=== PATIENT | male | born 1930 | race Caucasian/White ===

== ENCOUNTER 2017-11-15 10:49 | Inpatient (IN) | payer MEDICARE ==
--- NOTE | 2017-11-15 12:24 | XRAY Report ---
EXAM: CHEST RADIOGRAPHY EXAM DATE: 11/15/2017 12:08 PM. CLINICAL HISTORY: Fever. COMPARISON: Chest x-ray 05/01/2007. TECHNIQUE: 1 view. FINDINGS: Lungs/Pleura: Left basilar opacity. Left hemidiaphragm is partially obscured. No pneumothorax. Mediastinum: Tortuous thoracic aorta. Other: Left glenohumeral joint degenerative changes with inferior marginal osteophytes. Left shoulder calcific tendinosis. IMPRESSION: 1. Left basilar atelectasis and airspace disease worrisome for pneumonia. [facility] Referring Provider Line: [phone] SITE ID: [id number]
[2017-11-15 12:25] LABS: BILIRUBIN,URINE NEGATIVE (NEGATIVE); GLUCOSE, URINE (UA) NEGATIVE (NEGATIVE); KETONES,URINE (UA) NEGATIVE (NEGATIVE); LEUKOCYTE ESTERASE, URINE NEGATIVE (NEGATIVE); NITRITE,URINE NEGATIVE (NEGATIVE); OCCULT BLOOD,URINE TRACE-LYSE (NEGATIVE); PROTEIN,URINE NEGATIVE (NEGATIVE); UROBILINOGEN,URINE 0.2 (NORMAL) E.U./dL (NORMAL)
[2017-11-15 12:26] LABS: BASOPHILS % (AUTO) 0.8 %; EOSINOPHILS # (AUTO) 0.1 10^3/uL (0.0-0.7); HGB - HEMOGLOBIN 14.6 g/dL (14.0-18.0); LYMPHOCYTES # (AUTO) 1.3 10^3/uL (1.5-3.5); LYMPHOCYTES % (AUTO) 39.1 %; MEAN CORPUSCULAR HEMOGLOBIN 34.8 pg (27.0-31.0); MEAN CORPUSCULAR HGB CONC 34.8 g/dL (32.0-36.0); MEAN CORPUSCULAR VOLUME 100.1 fL (80.0-94.0); MEAN PLATELET VOLUME 10.3 fL (7.4-11.4); MONOCYTES # (AUTO) 0.3 10^3/uL (0.0-1.0); MONOCYTES % (AUTO) 9.1 %; NEUTROPHILS # (AUTO) 1.6 10^3/uL (1.5-6.6); PLT - PLATELET COUNT 100 10^3/uL (130-450); RED BLOOD COUNT 4.18 10^6/uL (4.70-6.10); RED CELL DISTRIBUTION WIDTH 13.8 % (12.0-15.0); WHITE BLOOD COUNT 3.2 x10^3/uL (4.8-10.8)
[2017-11-15] MEDS ORDERED: SODIUM CHLORIDE 0.9% 1,000 ML IV ONE (12:26)
[2017-11-15] MEDS ORDERED: ERTAPENEM 1 GM in SODIUM CHLORIDE 0.9% MINIBAG 100 ML IV STA (12:27)
[2017-11-15 12:32] LABS: CLARITY,URINE CLEAR (CLEAR)
[2017-11-15 12:32] LABS: CALCIUM 8.6 mg/dL (8.5-10.3); CREATININE 1.2 mg/dL (0.6-1.2)
[2017-11-15 12:45] LABS: PLATELET ESTIMATE, MANUAL DECREASED (<130,000) (NORMAL); PLATELET MORPHOLOGY 1+ LARGE PLATELETS (NORMAL); RBC MORPHOLOGY (MULTIPLE) NORMAL APPEARANCE (NORMAL)
--- NOTE | 2017-11-15 12:58 | ED Physician Documentation ---
History of Present Illness - Stated complaint Stated Complaint: FEVER/HEADACHE/D - Chief complaint Chief Complaint: General - Additonal information Additional information: hx from pt and very nice generally healthy 87 male only pmhx is HTN he had URI sx early Oct but got better went to a [employer] [place] and shortly after became ill again with fever myalgias fatigue sneezing coughing nausea and some non bloody diarrhea arrives hypotensive Review of Systems Constitutional: reports: Fever, Chills, Myalgias, Fatigue Nose: reports: Congestion, Other (sneezing) Respiratory: reports: Dyspnea, Cough GI: reports: Nausea, Diarrhea Neurologic: reports: Generalized weakness Endocrine: denies: Easy bruising / bleeding Immunocompromised: denies: Immunocompromised PD PAST MEDICAL HISTORY - Past Medical History Past Medical History: Yes Cardiovascular: Hypertension Respiratory: None Endocrine/Autoimmune: None HEENT: None Psych: None Musculoskeletal: None Derm: None - Past Surgical History Past Surgical History: Yes - Present Medications Home Medications: Ambulatory Orders Medication Instructions Recorded Confirmed Aspirin [Aspirin EC] 325 mg PO DAILY 11/15/17 11/15/17 Ezetimibe [Zetia] 10 mg PO DAILY 11/15/17 11/15/17 Losartan Potassium 50 mg PO DAILY 11/15/17 11/15/17 Multivitamin [Multiple Vitamins] 1 each PO DAILY 11/15/17 11/15/17 - Allergies Allergies/Adverse Reactions: Allergies Allergy/AdvReac Type Severity Reaction Status Date / Time No Known Drug Allergies Allergy Verified 11/15/17 10:56 - Social History Does the pt smoke?: No Smoking Status: Never smoker Does the pt drink ETOH?: Yes Does the pt have substance abuse?: No - Immunizations Immunizations are current?: Yes PD ED PE NORMAL - Vitals Vital signs reviewed: Yes - General General: Alert and oriented X 3 - HEENT HEENT: PERRL, Moist mucous membranes - Neck Neck: Supple, no meningeal sign - Cardiac Cardiac: RRR - Respiratory Respiratory: Other (coarse govind non focal) - Abdomen Abdomen: Soft, Non tender - Derm Derm: Normal color - Extremities Extremities: Normal ROM s pain - Neuro Neuro: Alert and oriented X 3 Results - Vitals Vitals: Vital Signs - 24 hr 11/15/17 11/15/17 10:52 12:26 Temperature 36.6 C 36.7 C Heart Rate 71 79 Respiratory 18 18 Rate Blood Pressure 96/70 105/76 O2 Saturation 97 97 Oxygen O2 Source Room air - Labs Labs: Laboratory Tests 11/15/17 11/15/17 11/15/17 11:30 11:30 11:30 WBC 3.2 L RBC 4.18 L Hgb 14.6 Hct 41.9 L MCV 100.1 H MCH 34.8 H MCHC 34.8 RDW 13.8 Plt Count 100 L MPV 10.3 Neut # 1.6 Lymph # 1.3 L [place] # 0.3 Eos # 0.1 Baso # 0.0 Absolute Nucleated RBC 0.00 Nucleated RBC % 0.0 Manual Slide Review Indicated Platelet Estimate DECREASED (<130,000) Platelet Morphology 1+ LARGE PLATELETS RBC Morph Micro Appear NORMAL APPEARANCE Sodium 134 L Potassium 4.2 Chloride 98 L Carbon Dioxide 26 Anion Gap 10.0 BUN 21 H Creatinine 1.2 Estimated GFR (MDRD) 58 L Glucose 79 Lactic Acid 1.6 Calcium 8.6 Urine Color Urine Clarity Urine pH Ur Specific [place] Urine Protein Urine Glucose (UA) Urine Ketones Urine Occult Blood Urine Nitrite Urine Bilirubin Urine Urobilinogen Ur Leukocyte Esterase Ur Microscopic Review Urine Culture Comments Influenza A (Rapid) Influenza B (Rapid) Influenza Types A,B Ag 11/15/17 11/15/17 12:00 12:20 WBC RBC Hgb Hct MCV MCH MCHC RDW Plt Count MPV Neut # Lymph # [place] # Eos # Baso # Absolute Nucleated RBC Nucleated RBC % Manual Slide Review Platelet Estimate Platelet Morphology RBC Morph Micro Appear Sodium Potassium Chloride Carbon Dioxide Anion Gap BUN Creatinine Estimated GFR (MDRD) Glucose Lactic Acid Calcium Urine Color YELLOW Urine Clarity CLEAR Urine pH 6.0 Ur Specific [place] 1.015 Urine Protein NEGATIVE Urine Glucose (UA) NEGATIVE Urine Ketones NEGATIVE Urine Occult Blood TRACE-LYSE Urine Nitrite NEGATIVE Urine Bilirubin NEGATIVE Urine Urobilinogen 0.2 (NORMAL) Ur Leukocyte Esterase NEGATIVE Ur Microscopic Review NOT INDICATED Urine Culture Comments NOT INDICATED Influenza A (Rapid) POSITIVE H Influenza B (Rapid) Negative Influenza Types A,B Ag + H - Rads (name of study) CXR Radiology: See rad report (L basilar atelectasis and airpsace dz c/w pna) PD MEDICAL DECISION MAKING - ED course ED course: arrive hypotensive ordered labs vblood cx lactate and gave IVF and invanz broad spectrrum after labs drawn pending results lactate was neg CXR shows pna influenza + have tamiflu and will admit given that pt had SIRS criteria d/w hospitalist Dr Schmitz Departure - Departure Disposition: 66 [facility] DC/Xfer Clinical Impression: Influenza A, SIRS (systemic inflammatory response syndrome) Pneumonia Qualifiers: Pneumonia type: due to unspecified organism Laterality: left Lung location: lower lobe of lung Qualified Code(s): J18.1 - Lobar pneumonia, unspecified organism Condition: Fair Discharge Date/Time: 11/15/17 13:55
[2017-11-15] MEDS ORDERED: OSELTAMIVIR 75 MG CAPSULE PO STA (13:00)
[2017-11-15] MEDS ORDERED: MORPHINE 2 MG/ML SYRINGE IVP PRN (13:19)
[2017-11-15] MEDS ORDERED: PROCHLORPERAZINE 10 MG/2 ML VIAL IVP PRN (13:19)
[2017-11-15] MEDS ORDERED: ALBUTEROL NEB 2.5 MG/3 ML INH PRN (13:19)
[2017-11-15] MEDS ORDERED: PROMETHAZINE 25 MG/1 ML VIAL IM PRN (13:19)
[2017-11-15] MEDS ORDERED: TEMAZEPAM 15 MG CAPSULE PO PRN (13:19)
[2017-11-15] MEDS ORDERED: oxyCODONE 5 MG TABLET PO PRN ×2 (13:19)
[2017-11-15] MEDS ORDERED: ACETAMINOPHEN 325 MG TABLET PO PRN (13:19)
[2017-11-15] MEDS: SODIUM CHLORIDE 0.9% 1,000 ML IV SCH (14:56)
[2017-11-15] MEDS: SODIUM CHLORIDE FLUSH 0.9% 10 ML SYRINGE IVP SCH ×2 (14:59→21:38)
[2017-11-15] MEDS: levoFLOXacin 750 MG/150 ML 750 MG/150 ML BAG IV SCH (14:59)
[2017-11-15] MEDS ORDERED: LOPERAMIDE 2 MG CAPSULE PO PRN (15:36)
--- NOTE | 2017-11-15 15:38 | HISTORY & PHYSICAL EXAMINATION ---
Chief Complaint - Chief Complaint Chief Complaint: Shortness of breath History of Present Illness - Admitted From Admitted From:: Emergency department - History Obtained From Records Reviewed: Yes History obtained from: Patient Exam Limitations: None - History of Present Illness HPI Comment/Other: Patient is an 87-year-old gentleman with a past medical history significant for abdominal aortic aneurysm status post stent, hearing loss and hypertension who presented to the emergency department with a chief complaint of shortness of air. Patient states that he was in his normal state of health until the beginning of this month when he states that he felt as though he was getting a cold. The patient states that he took DayQuil and NyQuil for several days and felt like he got over it. He states that about a week and a half later he went to the theater with his in [place] and when they returned home he began feeling cold. He states that that night he had a fever and chills. He states that a day or 2 later he began having a cough and again tried to take NyQuil over the last 2 weeks however his symptoms did not improve. The patient states that he has had continued cough increasing generalized weakness and now has shortness of breath with exertion. The patient states that his fevers did stop but he has been having increasing fatigue and shortness of breath especially the last 2 days and his finally convinced him to come into the emergency department. The patient also states that he has had diarrhea for 2 days. He does admit to body aches but denies any fevers or chills the last several days. The patient denies being around any sick contacts. The patient denies any headaches, blurred vision, runny nose, sore throat, he does admit to nasal congestion but denies any neck pain or difficulty swallowing. Patient denies any chest pain, orthopnea, PND, increased lower extremity swelling, he denies any abdominal pain but does admit to having lots of gas. The patient denies any constipation, he denies any nausea or vomiting. The patient denies any urinary urgency, urinary frequency or dysuria. The patient denies any joint pains, joint swelling, back pain, neck stiffness, he also denies any focal neurologic deficits. The patient does admit to decreased appetite but denies any recent unintentional weight loss. On presentation to the emergency department the patient was afebrile and vital signs were within normal limits aside from blood pressure of 96/70. The patient 's lab work did show a slight hyponatremia of 134 and a leukopenia of 3.2 with lymphopenia. The patient also had some mild thrombocytopenia. Patient's urine was negative and his influenza A was positive. The patient underwent a chest x- ray in the emergency department which revealed left basilar atelectasis and airspace disease worrisome for pneumonia. The patient had significant rhonchi on examination also concerning for pneumonia. The patient was given a liter of IV fluid and IV antibiotics in the emergency department the patient's blood pressure only came up to 105/76 and he continued to appear to be quite weak and given his age it was felt that the patient would be best off getting admitted for pneumonia and influenza a. History - Past Medical History Cardiovascular: reports: Hypertension, Other (Abdominal aortic aneurysm Status post stent) Respiratory: reports: Asthma (Childhood) Neuro: reports: Other (Hearing loss) Endocrine/Autoimmune: reports: None GI: reports: None : reports: None HEENT: reports: None Psych: reports: None Musculoskeletal: reports: None Derm: reports: None MRSA Hx?: No - Past Surgical History Cardiovascular: reports: AAA - Family & Social History Family History: Mother: (Father lived to be 92 and was healthy), CVA/ TIA (Mom had stroke at 64), Father: Family History Comment/Other: Patient has no brothers or sisters Living arrangement: At home Living Situation: With spouse/s.o. Social History Notes: The patient lives in [place], [place] in a home with his . Him and his have been for 44 years. The patient is still completely independent and still drives. The patient does not require any assistance devices for ambulating. The patient has 2 biological children and 1 stepchild. 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 The patient drinks a cocktail or a glass of wine daily. He used to smoke 2 packs a day but quit 35 years ago. He denies any illicit drug use - POLST Patient has POLST: No POLST Status: Full Code Meds/Allgy - Home Medications Home Medications: Ambulatory Orders Medication Instructions Recorded Confirmed Aspirin [Aspirin EC] 325 mg PO DAILY 11/15/17 11/15/17 Ezetimibe [Zetia] 10 mg PO QD 11/15/17 11/15/17 Losartan Potassium 50 mg PO DAILY 11/15/17 11/15/17 Multivitamin [Multiple Vitamins] 1 each PO DAILY 11/15/17 11/15/17 - Allergies Allergies/Adverse Reactions: Allergies Allergy/AdvReac Type Severity Reaction Status Date / Time No Known Drug Allergies Allergy Verified 11/15/17 10:56 Review of Systems - Other Findings Other Findings: A comprehensive review of systems was performed the pertinent positives and negatives are stated above in the HPI and the remainder of the review of systems is negative. Exam - Vital Signs Reviewed Vital Signs: Yes Vital Signs: Vital Signs x48h Temp Pulse Pulse Resp BP Pulse Ox 11/15/17 14:47 50 L 14 11/15/17 14:00 35.9 C L 54 L 16 144/96 H 98 - Physical Exam General Appearance: positive: Alert, Mild distress (Weak and short of breath) Eyes Bilateral: positive: Normal inspection, PERRL, EOMI, No lid inflammation, Conjunctivae nml, No scleral icterus ENT: positive: ENT inspection nml, Pharynx nml, Dry mucous membranes. negative : Purulent nasal drainage, Pharyngeal erythema, Oral lesions Neck: positive: Nml inspection, Thyroid nml, No JVD, Trachea midline. negative : Thyromegaly, Lymphadenopathy (R), Lymphadenopathy (L), Stiff neck, Carotid bruit, Tracheal deviation Respiratory: positive: Chest non-tender, Rhonchi (Left base) Cardiovascular: positive: Regular rate & rhythm, No murmur, No gallop Peripheral Pulses: positive: 2+ Abdomen: positive: Non-tender, No organomegaly, No distention, Abnml bowel sounds (Hyperactive bowel sounds). negative: Guarding, Rebound, Hepatomegaly Back: positive: Nml inspection. negative: CVA tenderness (R), CVA tenderness (L ) Skin: positive: Color nml, No rash, Dry. negative: Cyanosis, Diaphoresis, Pallor Extremities: positive: Non-tender, Full ROM, Nml appearance, No pedal edema Neurologic/Psychiatric: positive: Oriented x3, CN's nml (2-12), Motor nml, Sensation nml, Mood/affect nml Conclusion/Plan - Problem List (1) CAP (community acquired pneumonia) Conclusion/Plan: Patient presents to the emergency department with a chief complaint of shortness of air and cough. Patient has been having fever, fatigue, body aches for the last 2 weeks. The patient does have finding of influenza A on flu swab. The patient had leukopenia with hypotension on presentation. The patient 's chest x-ray showed a left basilar pneumonia. Patient was given antibiotics in the emergency department and IV fluids and is now admitted to the hospital. Plan: Patient will be treated for community acquired pneumonia with Levaquin IV We will also treat the patient for influenza A with Tamiflu Patient will be given IV fluids Patient will be given oxygen as needed Patient will be placed on probiotic and given nebulizer treatments as needed. Qualifiers: Laterality: left Lung location: lower lobe of lung Qualified Code(s): J18.1 - Lobar pneumonia, unspecified organism (2) Influenza A Conclusion/Plan: The patient presented to the emergency department with 2 weeks of fever, fatigue , increased shortness of air, cough and generalized malaise/body aches. The patient was found to have pneumonia on chest x-ray and did have leukopenia with lymphopenia. The patient's influenza swab showed that he was positive for influenza A. Although patient's symptoms started 2 weeks ago given that the patient has finding of pneumonia and is requiring hospitalization it was felt that patient should be started on Tamiflu despite it being greater than 48 hours after start of symptoms. Plan: Patient will be placed on Tamiflu 75 mg twice daily We will monitor patient closely for any side effects. (3) Diarrhea Conclusion/Plan: Patient has been having diarrhea for the last several days. On presentation the patient has dry mucous membranes and appears to be dry. Given the patient' s positive influenza and leukopenia with lymphopenia I suspect that the patient likely has a viral gastroenteritis. Plan: We will check the patient's stool for C. difficile, culture and fecal leukocytes If infectious workup is negative patient will be started on Imodium as needed. Qualifiers: Diarrhea type: unspecified type Qualified Code(s): R19.7 - Diarrhea, unspecified (4) Hypertension Conclusion/Plan: The patient has a history of hypertension and is on losartan at home but on presentation to the emergency department the patient is hypotensive likely secondary to his pneumonia and infection. We will hold the patient's losartan for now and continue to monitor his blood pressure Patient will be given IV fluids and once blood pressure is improved we will consider restarting his losartan. Qualifiers: Hypertension type: essential hypertension Qualified Code(s): I10 - Essential (primary) hypertension (5) Hyponatremia Conclusion/Plan: Patient's sodium on presentation is 134. Patient appears to be dry and is having diarrhea as well as pneumonia and influenza A. Patient likely has hypovolemic hyponatremia. Patient will be given IV fluids and we will continue to monitor his sodium daily. (6) Hyperlipidemia Conclusion/Plan: Patient has history of hyperlipidemia and is on Zetia at home. Currently patient appears to be stable from this standpoint will be continued on his home dose of Zetia. (7) Prophylactic use of low molecular weight heparin for venous thromboembolism Conclusion/Plan: Patient will be placed on Lovenox while he is hospitalized for DVT prophylaxis. - Lab Results Lab results reviewed: Yes Fish Bones: 11/15/17 11:30 11/15/17 11:30 Other Lab Results: Laboratory Results WBC 3.2 x10^3/uL (4.8-10.8) L 11/15/17 11:30 RBC 4.18 10^6/uL (4.70-6.10) L 11/15/17 11:30 Hgb 14.6 g/dL (14.0-18.0) 11/15/17 11:30 Hct 41.9 % (42.0-52.0) L 11/15/17 11:30 MCV 100.1 fL (80.0-94.0) H 11/15/17 11:30 MCH 34.8 pg (27.0-31.0) H 11/15/17 11:30 MCHC 34.8 g/dL (32.0-36.0) 11/15/17 11:30 RDW 13.8 % (12.0-15.0) 11/15/17 11:30 Plt Count 100 10^3/uL (130-450) L 11/15/17 11:30 MPV 10.3 fL (7.4-11.4) 11/15/17 11:30 Neut # 1.6 10^3/uL (1.5-6.6) 11/15/17 11:30 Lymph # 1.3 10^3/uL (1.5-3.5) L 11/15/17 11:30 [place] # 0.3 10^3/uL (0.0-1.0) 11/15/17 11:30 Eos # 0.1 10^3/uL (0.0-0.7) 11/15/17 11:30 Baso # 0.0 10^3/uL (0.0-0.1) 11/15/17 11:30 Absolute Nucleated RBC 0.00 x10^3/uL 11/15/17 11:30 Nucleated RBC % 0.0 /100WBC 11/15/17 11:30 Manual Slide Review Indicated 11/15/17 11:30 Platelet Estimate DECREASED (<130,000) (NORMAL) 11/15/17 11:30 Platelet Morphology 1+ LARGE PLATELETS (NORMAL) 11/15/17 11:30 RBC Morph Micro Appear NORMAL APPEARANCE (NORMAL) 11/15/17 11:30 Sodium 134 mmol/L (135-145) L 11/15/17 11:30 Potassium 4.2 mmol/L (3.5-5.0) 11/15/17 11:30 Chloride 98 mmol/L (101-111) L 11/15/17 11:30 Carbon Dioxide 26 mmol/L (21-32) 11/15/17 11:30 Anion Gap 10.0 (6-13) 11/15/17 11:30 BUN 21 mg/dL (6-20) H 11/15/17 11:30 Creatinine 1.2 mg/dL (0.6-1.2) 11/15/17 11:30 Estimated GFR (MDRD) 58 (>89) L 11/15/17 11:30 Glucose 79 mg/dL (70-100) 11/15/17 11:30 Lactic Acid 1.6 mmol/L (0.5-2.2) 11/15/17 11:30 Calcium 8.6 mg/dL (8.5-10.3) 11/15/17 11:30 Urine Color YELLOW 11/15/17 12:00 Urine Clarity CLEAR (CLEAR) 11/15/17 12:00 Urine pH 6.0 PH (5.0-7.5) 11/15/17 12:00 Ur Specific [place] 1.015 (1.002-1.030) 11/15/17 12:00 Urine Protein NEGATIVE mg/dL (NEGATIVE) 11/15/17 12:00 Urine Glucose (UA) NEGATIVE mg/dL (NEGATIVE) 11/15/17 12:00 Urine Ketones NEGATIVE mg/dL (NEGATIVE) 11/15/17 12:00 Urine Occult Blood TRACE-LYSE (NEGATIVE) 11/15/17 12:00 Urine Nitrite NEGATIVE (NEGATIVE) 11/15/17 12:00 Urine Bilirubin NEGATIVE (NEGATIVE) 11/15/17 12:00 Urine Urobilinogen 0.2 (NORMAL) E.U./dL (NORMAL) 11/15/17 12:00 Ur Leukocyte Esterase NEGATIVE (NEGATIVE) 11/15/17 12:00 Ur Microscopic Review NOT INDICATED 11/15/17 12:00 Urine Culture Comments NOT INDICATED 11/15/17 12:00 Influenza A (Rapid) POSITIVE (Negative) H 11/15/17 12:20 Influenza B (Rapid) Negative (Negative) 11/15/17 12:20 Influenza Types A,B Ag + H 11/15/17 12:20 - Diagnostic Imaging Results Diagnostic Imaging Results: positive: Final report reviewed Diagnostic Imaging Results Comments: Chest x-ray Impression: 1. Left basilar atelectasis and airspace disease worrisome for pneumonia. Core Measures - Anticipated LOS I expect patient to be DC'd or transferred within 96 hours.: Yes - DVT/VTE - Prophylaxis VTE/DVT Prophylaxis med ordered at admit?: Yes
[2017-11-15] MEDS: SACCHAROMYCES BOULARDII 250 MG CAPSULE PO SCH (16:25)
[2017-11-15] MEDS: OSELTAMIVIR 75 MG CAPSULE PO SCH (21:38)
[2017-11-16] MEDS: SODIUM CHLORIDE 0.9% 1,000 ML IV SCH (02:33)
[2017-11-16 05:36] LABS: BASOPHILS % (AUTO) 0.2 %; EOSINOPHILS % (AUTO) 1.5 %; HGB - HEMOGLOBIN 13.1 g/dL (14.0-18.0); LYMPHOCYTES % (AUTO) 41.8 %; MEAN CORPUSCULAR HEMOGLOBIN 33.9 pg (27.0-31.0); MEAN CORPUSCULAR HGB CONC 33.4 g/dL (32.0-36.0); MEAN CORPUSCULAR VOLUME 101.6 fL (80.0-94.0); MEAN PLATELET VOLUME 9.7 fL (7.4-11.4); MONOCYTES # (AUTO) 0.2 10^3/uL (0.0-1.0); MONOCYTES % (AUTO) 10.4 %; NEUTROPHILS # (AUTO) 1.1 10^3/uL (1.5-6.6); NEUTROPHILS % (AUTO) 46.1 %; PLT - PLATELET COUNT 82 10^3/uL (130-450); RED BLOOD COUNT 3.88 10^6/uL (4.70-6.10); RED CELL DISTRIBUTION WIDTH 13.5 % (12.0-15.0); WHITE BLOOD COUNT 2.3 x10^3/uL (4.8-10.8)
[2017-11-16 05:46] LABS: CALCIUM 7.8 mg/dL (8.5-10.3); CREATININE 1.1 mg/dL (0.6-1.2)
[2017-11-16] MEDS: SODIUM CHLORIDE FLUSH 0.9% 10 ML SYRINGE IVP SCH ×3 (06:17→16:42)
[2017-11-16 06:21] LABS: PLATELET ESTIMATE, MANUAL DECREASED (<130,000) (NORMAL); PLATELET MORPHOLOGY NORMAL APPEARANCE (NORMAL); RBC MORPHOLOGY (MULTIPLE) 2+ MACROCYTOSIS (NORMAL)
[2017-11-16] MEDS ORDERED: LOSARTAN 50 MG TABLET PO SCH (09:00)
[2017-11-16] MEDS ORDERED: EZETIMIBE 10 MG TABLET PO SCH (09:00)
[2017-11-16] MEDS: MULTIVITAMIN TABLET PO SCH (09:15)
[2017-11-16] MEDS: ASPIRIN EC 325 MG TABLET PO SCH (09:16)
[2017-11-16] MEDS: ENOXAPARIN 40 MG/0.4 ML SYRINGE SUBQ SCH (09:16)
[2017-11-16] MEDS: SACCHAROMYCES BOULARDII 250 MG CAPSULE PO SCH ×2 (09:16→16:42)
[2017-11-16] MEDS: LOSARTAN 50 MG TABLET PO SCH (09:17)
[2017-11-16] MEDS: POLYETHYLENE GLYCOL 3350 17 GM PACKET PO SCH (09:18)
[2017-11-16] MEDS: FAMOTIDINE 20 MG TABLET PO SCH (09:18)
[2017-11-16] MEDS: OSELTAMIVIR 75 MG CAPSULE PO SCH ×2 (09:18→20:39)
[2017-11-16] MEDS: levoFLOXacin 750 MG/150 ML 750 MG/150 ML BAG IV SCH (15:07)
--- NOTE | 2017-11-16 15:26 | PROVIDER PROGRESS NOTE ---
Assessment/Plan - Problem List (1) CAP (community acquired pneumonia) Qualifiers: Laterality: left Lung location: lower lobe of lung Qualified Code(s): J18.1 - Lobar pneumonia, unspecified organism Assessment/Plan: Patient presents to the emergency department with a chief complaint of shortness of air and cough. Patient has been having fever, fatigue, body aches for the last 2 weeks. The patient does have finding of influenza A on flu swab. The patient had leukopenia with hypotension on presentation. The patient 's chest x-ray showed a left basilar pneumonia. Patient was given antibiotics in the emergency department and IV fluids and is now admitted to the hospital. Patient still feels weak and has shortness of breath with minimal exertion feels like he is not ready to go home Plan: Levaquin IV day 2 We are also treating for influenza A with Tamiflu Given IV fluids but diarrhea has stopped and patient eating and drinking so will stop fluids Patient will be given oxygen as needed Patient will be placed on probiotic and given nebulizer treatments as needed. (2) Influenza A The patient presented to the emergency department with 2 weeks of fever, fatigue , increased shortness of air, cough and generalized malaise/body aches. The patient was found to have pneumonia on chest x-ray and did have leukopenia with lymphopenia. The patient's influenza swab showed that he was positive for influenza A. Although patient's symptoms started 2 weeks ago given that the patient has finding of pneumonia and is requiring hospitalization it was felt that patient should be started on Tamiflu despite it being greater than 48 hours after start of symptoms. Plan: Patient will be placed on Tamiflu 75 mg twice daily day 2 We will monitor patient closely for any side effects. (3) Diarrhea Resolved (4) Hypertension BP elevated will restart losartan Monitor closely and titrate meds. (5) Hyponatremia Continue IVFs Na 133 (6) Hyperlipidemia Patient states he stopped taking zetia a few months ago therefore discontinued (7) Prophylactic use of low molecular weight heparin for venous thromboembolism Patient will be placed on Lovenox while he is hospitalized for DVT prophylaxis. - Current Meds Current Meds: Current Medications Generic Name Dose Route Start Last Admin Trade Name Freq PRN Reason Stop Dose Admin Aspirin 325 mg 11/16/17 09:00 11/16/17 09:16 Ecotrin PO 325 mg DAILY CARMELO Administration Enoxaparin Sodium 40 mg 11/16/17 09:00 11/16/17 09:16 Lovenox SUBQ Not Given DAILY CARMELO Famotidine 20 mg 11/16/17 09:00 11/16/17 09:18 Pepcid PO 20 mg DAILY CARMELO Administration Levofloxacin 750 mg in 150 mls @ 100 mls/hr 11/15/17 14:00 11/16/17 15:07 Levaquin 750 Mg/150 Ml IV 100 mls/hr Q24H CARMELO Administration Losartan Potassium 50 mg 11/16/17 09:00 11/16/17 09:17 Cozaar PO 50 mg DAILY CARMELO Administration Multivitamins 1 tab 11/16/17 08:00 11/16/17 09:15 Theragran PO 1 tab DAILYWM CARMELO Administration Oseltamivir Phosphate 75 mg 11/15/17 21:00 11/16/17 09:18 Tamiflu PO 11/20/17 09:01 75 mg BID CARMELO Administration Polyethylene Glycol 17 gm 11/16/17 09:00 11/16/17 09:18 Miralax PO Not Given DAILY CARMELO Saccharomyces Boulardii 250 mg 11/15/17 17:00 11/16/17 09:16 Florastor PO 250 mg BIDWM CARMELO Administration Sodium Chloride 10 ml 11/15/17 14:00 11/16/17 15:07 Normal Saline Flush 0.9% IVP 10 ml Q8HR CARMELO Administration - Lab Result Lab results reviewed: Yes Fish Bone Diagrams: 11/16/17 04:59 11/16/17 04:59 - Diagnostic Imaging Results Diagnostic Imaging Results: Final report reviewed - Additional Planning Condition/Complexity: Guarded My Orders: My Active Orders 11/15/17 15:36 Loperamide [Imodium] 2 mg PO QID PRN 11/16/17 08:00 Multivitamin [Theragran] 1 tab PO DAILYWM 11/16/17 09:00 Losartan [Cozaar] 50 mg PO DAILY Plan Discussed with:: Patient, Family Time Spent: 31-60 minutes Subjective - Subjective Patient Reports: Cough (Mild), Shortness of Breath (With exertion not improved) , Other (No fevers overnight) Nursing Reports: No Complaints Objective Vital Signs: Vital Signs - 24 hr 11/15/17 11/16/17 11/16/17 15:55 00:15 08:16 Temperature 36.6 C 36.9 C 36.8 C Heart Rate [ 51 L 53 L 52 L Brachial] Respiratory 17 16 20 Rate Blood Pressure 168/93 H 153/93 H 174/87 H [Right Brachial artery] O2 Saturation 95 96 97 11/16/17 12:54 Temperature 36.0 C L Heart Rate [ 55 L Brachial] Respiratory 18 Rate Blood Pressure 165/99 H [Right Brachial artery] O2 Saturation 97 Oxygen O2 Source Room air I&O (Last 24 Hrs): Intake and Output Totals x24h 11/14/17 11/15/17 11/16/17 23:59 23:59 23:59 Intake Total 1552.346 6273 Balance 9996.722 1847 General: Alert, Oriented x3, Cooperative, No acute distress HEENT: Atraumatic, PERRLA, EOMI, Mucous membr. moist/pink Neck: Supple, No JVD, No thyromegaly, +2 carotid pulse wo bruit, No LAD Lymphatic: no adenopathy Neuro: Alert, Non Focal, CN 2-12 Grossly Intact, Oriented Times 3 Cardiovascular: Regular rate, Normal S1, Normal S2, No murmurs Respiratory: Rhonchi (Left lung) Abdomen: Normal bowel sounds, Soft, No tenderness, No hepatospenomegaly, No masses Extremities: No clubbing, No cyanosis, No edema, Normal pulses Skin: No rashes, No breakdown - Results Results: Laboratory Results WBC 2.3 x10^3/uL (4.8-10.8) L 11/16/17 04:59 RBC 3.88 10^6/uL (4.70-6.10) L 11/16/17 04:59 Hgb 13.1 g/dL (14.0-18.0) L 11/16/17 04:59 Hct 39.4 % (42.0-52.0) L 11/16/17 04:59 MCV 101.6 fL (80.0-94.0) H 11/16/17 04:59 MCH 33.9 pg (27.0-31.0) H 11/16/17 04:59 MCHC 33.4 g/dL (32.0-36.0) 11/16/17 04:59 RDW 13.5 % (12.0-15.0) 11/16/17 04:59 Plt Count 82 10^3/uL (130-450) L 11/16/17 04:59 MPV 9.7 fL (7.4-11.4) 11/16/17 04:59 Neut # 1.1 10^3/uL (1.5-6.6) L 11/16/17 04:59 Lymph # 1.0 10^3/uL (1.5-3.5) L 11/16/17 04:59 [place] # 0.2 10^3/uL (0.0-1.0) 11/16/17 04:59 Eos # 0.0 10^3/uL (0.0-0.7) 11/16/17 04:59 Baso # 0.0 10^3/uL (0.0-0.1) 11/16/17 04:59 Absolute Nucleated RBC 0.00 x10^3/uL 11/16/17 04:59 Nucleated RBC % 0.0 /100WBC 11/16/17 04:59 Manual Slide Review Indicated 11/16/17 04:59 WBC Morphology NORMAL APPEARANCE (NORMAL) 11/16/17 04:59 Platelet Estimate DECREASED (<130,000) (NORMAL) 11/16/17 04:59 Platelet Morphology NORMAL APPEARANCE (NORMAL) 11/16/17 04:59 RBC Morph Micro Appear 2+ MACROCYTOSIS (NORMAL) 11/16/17 04:59 Sodium 133 mmol/L (135-145) L 11/16/17 04:59 Potassium 4.2 mmol/L (3.5-5.0) 11/16/17 04:59 Chloride 103 mmol/L (101-111) 11/16/17 04:59 Carbon Dioxide 24 mmol/L (21-32) 11/16/17 04:59 Anion Gap 6.0 (6-13) 11/16/17 04:59 BUN 17 mg/dL (6-20) 11/16/17 04:59 Creatinine 1.1 mg/dL (0.6-1.2) 11/16/17 04:59 Estimated GFR (MDRD) 64 (>89) L 11/16/17 04:59 Glucose 76 mg/dL (70-100) 11/16/17 04:59 Lactic Acid 1.6 mmol/L (0.5-2.2) 11/15/17 11:30 Calcium 7.8 mg/dL (8.5-10.3) L 11/16/17 04:59 Urine Color YELLOW 11/15/17 12:00 Urine Clarity CLEAR (CLEAR) 11/15/17 12:00 Urine pH 6.0 PH (5.0-7.5) 11/15/17 12:00 Ur Specific [place] 1.015 (1.002-1.030) 11/15/17 12:00 Urine Protein NEGATIVE mg/dL (NEGATIVE) 11/15/17 12:00 Urine Glucose (UA) NEGATIVE mg/dL (NEGATIVE) 11/15/17 12:00 Urine Ketones NEGATIVE mg/dL (NEGATIVE) 11/15/17 12:00 Urine Occult Blood TRACE-LYSE (NEGATIVE) 11/15/17 12:00 Urine Nitrite NEGATIVE (NEGATIVE) 11/15/17 12:00 Urine Bilirubin NEGATIVE (NEGATIVE) 11/15/17 12:00 Urine Urobilinogen 0.2 (NORMAL) E.U./dL (NORMAL) 11/15/17 12:00 Ur Leukocyte Esterase NEGATIVE (NEGATIVE) 11/15/17 12:00 Ur Microscopic Review NOT INDICATED 11/15/17 12:00 Urine Culture Comments NOT INDICATED 11/15/17 12:00 Influenza A (Rapid) POSITIVE (Negative) H 11/15/17 12:20 Influenza B (Rapid) Negative (Negative) 11/15/17 12:20 Influenza Types A,B Ag + H 11/15/17 12:20
[2017-11-16] MEDS ORDERED: SIMETHICONE 40 MG/0.6 ML 30 ML BOTTLE PO PRN (17:59)
[2017-11-16] MEDS: SIMETHICONE CHEW 80 MG TABLET PO PRN (20:04)
[2017-11-16] MEDS ORDERED: SODIUM CHLORIDE 0.9% 0 ML IV ONE (20:39)
[2017-11-16] MEDS: SODIUM CHLORIDE FLUSH 0.9% 10 ML SYRINGE IVP PRN (22:28)
[2017-11-16] MEDS: ONDANSETRON 4 MG/2 ML VIAL IVP PRN (22:28)
[2017-11-17] MEDS: SODIUM CHLORIDE FLUSH 0.9% 10 ML SYRINGE IVP SCH ×3 (05:09→20:59)
[2017-11-17] MEDS: ONDANSETRON 4 MG/2 ML VIAL IVP PRN (05:09)
[2017-11-17 06:59] LABS: BASOPHILS % (AUTO) 0.5 %; EOSINOPHILS % (AUTO) 1.4 %; HGB - HEMOGLOBIN 13.5 g/dL (14.0-18.0); LYMPHOCYTES # (AUTO) 1.2 10^3/uL (1.5-3.5); LYMPHOCYTES % (AUTO) 47.6 %; MEAN CORPUSCULAR HEMOGLOBIN 34.5 pg (27.0-31.0); MEAN CORPUSCULAR HGB CONC 34.6 g/dL (32.0-36.0); MEAN CORPUSCULAR VOLUME 99.6 fL (80.0-94.0); MEAN PLATELET VOLUME 8.8 fL (7.4-11.4); MONOCYTES # (AUTO) 0.3 10^3/uL (0.0-1.0); MONOCYTES % (AUTO) 11.8 %; NEUTROPHILS % (AUTO) 38.7 %; PLT - PLATELET COUNT 77 10^3/uL (130-450); RED CELL DISTRIBUTION WIDTH 13.4 % (12.0-15.0); WHITE BLOOD COUNT 2.5 x10^3/uL (4.8-10.8)
[2017-11-17 07:13] LABS: CALCIUM 8.3 mg/dL (8.5-10.3); CREATININE 1.2 mg/dL (0.6-1.2)
[2017-11-17] MEDS: SACCHAROMYCES BOULARDII 250 MG CAPSULE PO SCH ×2 (09:24→17:35)
[2017-11-17] MEDS: LOSARTAN 50 MG TABLET PO SCH (09:24)
[2017-11-17] MEDS: MULTIVITAMIN TABLET PO SCH (09:24)
[2017-11-17] MEDS: ASPIRIN EC 325 MG TABLET PO SCH (09:25)
[2017-11-17] MEDS: FAMOTIDINE 20 MG TABLET PO SCH (09:25)
[2017-11-17] MEDS: ENOXAPARIN 40 MG/0.4 ML SYRINGE SUBQ SCH (09:25)
[2017-11-17] MEDS: OSELTAMIVIR 75 MG CAPSULE PO SCH ×2 (09:25→20:59)
[2017-11-17] MEDS: POLYETHYLENE GLYCOL 3350 17 GM PACKET PO SCH (09:25)
[2017-11-17] MEDS: SIMETHICONE CHEW 80 MG TABLET PO PRN ×2 (09:43→16:01)
[2017-11-17] MEDS: levoFLOXacin 750 MG/150 ML 750 MG/150 ML BAG IV SCH (14:26)
[2017-11-17] MEDS: SODIUM CHLORIDE FLUSH 0.9% 10 ML SYRINGE IVP PRN (16:22)
[2017-11-17] MEDS ORDERED: LOSARTAN 50 MG TABLET PO SCH (18:30)
--- NOTE | 2017-11-17 18:32 | PROVIDER PROGRESS NOTE ---
Assessment/Plan - Problem List (1) CAP (community acquired pneumonia) Qualifiers: Laterality: left Lung location: lower lobe of lung Qualified Code(s): J18.1 - Lobar pneumonia, unspecified organism Assessment/Plan: Continue antibiotics Will assess O2 sat w/ exercise tomorrow for poss DCh on po antibiotics (2) Influenza A Assessment/Plan: Continue Tamiflu (3) Lightheadedness Assessment/Plan: Losartan was resumed this am for HTN yesterday Today's BP of 120 may be too low for Pt Will decrease the dose of Losartan - Current Meds Current Meds: Current Medications Generic Name Dose Route Start Last Admin Trade Name Freq PRN Reason Stop Dose Admin Famotidine 20 mg 11/16/17 09:00 11/17/17 09:25 Pepcid PO 20 mg DAILY CARMELO Administration Levofloxacin 750 mg in 150 mls @ 100 mls/hr 11/15/17 14:00 11/17/17 16:10 Levaquin 750 Mg/150 Ml IV Infused Q24H CARMELO Infusion Multivitamins 1 tab 11/16/17 08:00 11/17/17 09:24 Theragran PO 1 tab DAILYWM CARMELO Administration Ondansetron HCl 4 mg 11/15/17 13:19 11/17/17 05:09 Zofran Inj IVP 4 mg Q6HR PRN Administration Nausea / Vomiting Oseltamivir Phosphate 75 mg 11/15/17 21:00 11/17/17 09:25 Tamiflu PO 11/20/17 09:01 75 mg BID CARMELO Administration Polyethylene Glycol 17 gm 11/16/17 09:00 11/17/17 09:25 Miralax PO Not Given DAILY CARMELO Saccharomyces Boulardii 250 mg 11/15/17 17:00 11/17/17 17:35 Florastor PO 250 mg BIDWM CARMELO Administration Simethicone 80 mg 11/16/17 18:32 11/17/17 16:01 Mylicon PO 80 mg Q4H PRN Administration Gas Sodium Chloride 10 ml 11/15/17 13:19 11/17/17 16:22 Normal Saline Flush 0.9% IVP 10 ml PRN PRN Administration NEEDED PER PROVIDER ORDERS Sodium Chloride 10 ml 11/15/17 14:00 11/17/17 14:26 Normal Saline Flush 0.9% IVP 10 ml Q8HR CARMELO Administration - Lab Result Fish Bone Diagrams: 11/17/17 16:51 11/17/17 06:49 - Additional Planning My Orders: My Active Orders 11/17/17 15:14 Oxygen Desat. Study w/Exercise [RC] .ONCE 11/17/17 18:30 Losartan [Cozaar] 25 mg PO DAILY Subjective - Subjective Patient Reports: Feeling Better, Resting Comfortably, Shortness of Breath ( Lightheaded today) Objective Vital Signs: Vital Signs - 24 hr 11/16/17 11/17/17 11/17/17 20:18 00:45 07:51 Temperature 36.6 C 36.9 C 36.5 C Heart Rate Heart Rate [ 62 52 L 60 Brachial] Respiratory 16 16 12 Rate Blood Pressure [Left Brachial artery] Blood Pressure 167/97 H 154/96 H 150/95 H [Right Brachial artery] O2 Saturation 97 96 98 11/17/17 11/17/17 11:00 15:28 Temperature 36.4 C L Heart Rate 62 Heart Rate [ 66 Brachial] Respiratory 16 16 Rate Blood Pressure 122/82 H [Left Brachial artery] Blood Pressure [Right Brachial artery] O2 Saturation 99 Oxygen O2 Source Room air I&O (Last 24 Hrs): Intake and Output Totals x24h 11/15/17 11/16/17 11/17/17 23:59 23:59 23:59 Intake Total 6080.408 1567 1060 Balance 8181.685 8469 1060 General: Alert, Oriented x3 HEENT: Mucous membr. moist/pink Neck: Supple, No JVD Neuro: CN 2-12 Grossly Intact Cardiovascular: Regular rate, No murmurs Respiratory: Other (Dimminished BS, no wheezing or rales) Abdomen: Normal bowel sounds, Soft Extremities: No edema - Results Results: Laboratory Results WBC 2.5 x10^3/uL (4.8-10.8) L 11/17/17 06:49 RBC 3.90 10^6/uL (4.70-6.10) L 11/17/17 06:49 Hgb 13.5 g/dL (14.0-18.0) L 11/17/17 06:49 Hct 38.9 % (42.0-52.0) L 11/17/17 06:49 MCV 99.6 fL (80.0-94.0) H 11/17/17 06:49 MCH 34.5 pg (27.0-31.0) H 11/17/17 06:49 MCHC 34.6 g/dL (32.0-36.0) 11/17/17 06:49 RDW 13.4 % (12.0-15.0) 11/17/17 06:49 Plt Count 86 10^3/uL (130-450) L 11/17/17 16:51 MPV 8.8 fL (7.4-11.4) 11/17/17 06:49 Neut # 1.0 10^3/uL (1.5-6.6) L 11/17/17 06:49 Lymph # 1.2 10^3/uL (1.5-3.5) L 11/17/17 06:49 [place] # 0.3 10^3/uL (0.0-1.0) 11/17/17 06:49 Eos # 0.0 10^3/uL (0.0-0.7) 11/17/17 06:49 Baso # 0.0 10^3/uL (0.0-0.1) 11/17/17 06:49 Absolute Nucleated RBC 0.00 x10^3/uL 11/17/17 06:49 Nucleated RBC % 0.1 /100WBC 11/17/17 06:49 Manual Slide Review Indicated 11/16/17 04:59 WBC Morphology NORMAL APPEARANCE (NORMAL) 11/16/17 04:59 Platelet Estimate DECREASED (<130,000) (NORMAL) 11/16/17 04:59 Platelet Morphology NORMAL APPEARANCE (NORMAL) 11/16/17 04:59 RBC Morph Micro Appear 2+ MACROCYTOSIS (NORMAL) 11/16/17 04:59 Fibrinogen 324 mg/dL (220-496) 11/17/17 16:51 D-Dimer 2769.0 ng/mL (200.0-255.0) H 11/17/17 16:51 Sodium 133 mmol/L (135-145) L 11/17/17 06:49 Potassium 4.2 mmol/L (3.5-5.0) 11/17/17 06:49 Chloride 101 mmol/L (101-111) 11/17/17 06:49 Carbon Dioxide 26 mmol/L (21-32) 11/17/17 06:49 Anion Gap 6.0 (6-13) 11/17/17 06:49 BUN 14 mg/dL (6-20) 11/17/17 06:49 Creatinine 1.2 mg/dL (0.6-1.2) 11/17/17 06:49 Estimated GFR (MDRD) 58 (>89) L 11/17/17 06:49 Glucose 84 mg/dL (70-100) 11/17/17 06:49 Lactic Acid 1.6 mmol/L (0.5-2.2) 11/15/17 11:30 Calcium 8.3 mg/dL (8.5-10.3) L 11/17/17 06:49 Urine Color YELLOW 11/15/17 12:00 Urine Clarity CLEAR (CLEAR) 11/15/17 12:00 Urine pH 6.0 PH (5.0-7.5) 11/15/17 12:00 Ur Specific [place] 1.015 (1.002-1.030) 11/15/17 12:00 Urine Protein NEGATIVE mg/dL (NEGATIVE) 11/15/17 12:00 Urine Glucose (UA) NEGATIVE mg/dL (NEGATIVE) 11/15/17 12:00 Urine Ketones NEGATIVE mg/dL (NEGATIVE) 11/15/17 12:00 Urine Occult Blood TRACE-LYSE (NEGATIVE) 11/15/17 12:00 Urine Nitrite NEGATIVE (NEGATIVE) 11/15/17 12:00 Urine Bilirubin NEGATIVE (NEGATIVE) 11/15/17 12:00 Urine Urobilinogen 0.2 (NORMAL) E.U./dL (NORMAL) 11/15/17 12:00 Ur Leukocyte Esterase NEGATIVE (NEGATIVE) 11/15/17 12:00 Ur Microscopic Review NOT INDICATED 11/15/17 12:00 Urine Culture Comments NOT INDICATED 11/15/17 12:00 Stool Leukocytes, Qual NEGATIVE (Negative) 11/16/17 17:28 Influenza A (Rapid) POSITIVE (Negative) H 11/15/17 12:20 Influenza B (Rapid) Negative (Negative) 11/15/17 12:20 Influenza Types A,B Ag + H 11/15/17 12:20
[2017-11-18] MEDS: SODIUM CHLORIDE FLUSH 0.9% 10 ML SYRINGE IVP SCH (06:01)
[2017-11-18 06:04] LABS: BASOPHILS % (AUTO) 0.4 %; EOSINOPHILS % (AUTO) 1.8 %; HGB - HEMOGLOBIN 13.4 g/dL (14.0-18.0); LYMPHOCYTES # (AUTO) 1.3 10^3/uL (1.5-3.5); LYMPHOCYTES % (AUTO) 49.1 %; MEAN CORPUSCULAR HEMOGLOBIN 34.2 pg (27.0-31.0); MEAN CORPUSCULAR HGB CONC 34.2 g/dL (32.0-36.0); MEAN PLATELET VOLUME 8.8 fL (7.4-11.4); MONOCYTES # (AUTO) 0.3 10^3/uL (0.0-1.0); MONOCYTES % (AUTO) 12.6 %; NEUTROPHILS % (AUTO) 36.1 %; PLT - PLATELET COUNT 79 10^3/uL (130-450); RED BLOOD COUNT 3.93 10^6/uL (4.70-6.10); RED CELL DISTRIBUTION WIDTH 13.3 % (12.0-15.0); WHITE BLOOD COUNT 2.7 x10^3/uL (4.8-10.8)
[2017-11-18 06:11] LABS: CALCIUM 8.4 mg/dL (8.5-10.3); CREATININE 1.1 mg/dL (0.6-1.2)
[2017-11-18] MEDS ORDERED: AZITHROMYCIN 250 MG TABLET PO SCH (08:53)
[2017-11-18] MEDS ORDERED: AZITHROMYCIN 250 MG TABLET PO STA (08:53)
[2017-11-18] MEDS: MULTIVITAMIN TABLET PO SCH (09:22)
[2017-11-18] MEDS: OSELTAMIVIR 75 MG CAPSULE PO SCH (09:22)
[2017-11-18] MEDS: SACCHAROMYCES BOULARDII 250 MG CAPSULE PO SCH (09:22)
[2017-11-18] MEDS: FAMOTIDINE 20 MG TABLET PO SCH (09:23)
[2017-11-18] MEDS: POLYETHYLENE GLYCOL 3350 17 GM PACKET PO SCH (09:24)
--- NOTE | 2017-11-18 09:31 | Discharge Plan ---
Discharge Plan Disposition: 01 Home, Self Care Condition: Fair Prescriptions: Azithromycin [Zithromax] 250 mg PO DAILY #4 tablet Losartan [Cozaar] 25 mg PO DAILY #30 tablet Oseltamivir [Tamiflu] 75 mg PO BID #8 capsule Diet: Low Sodium Activity Restrictions: Activity as Tolerated Shower Restrictions: No Driving Restrictions: No Instruction Topics: Oseltamivir capsules, Pneumonia Tx, Thrombocytopenia, Platelets Additional Instructions or Follow Up instructions: Take the daily antibiotic Zithromax for 4 more days Take the twice daily Tamiflu for 4 more days Take the new lower dose of Losartan for BP control STOP TAKING THE DAILY ASPIRIN because you have a low platelet count. This could be restarted by your Doctor after a blood test is repeated to check the platelet count in a few days. Resume all your other medications as before hospitalization. See your Primary Care Provider in a week for follow-up of the pneumonia, flu and low platelet count. No Smoking: If you smoke, Please STOP! Call for help. Follow-up with: SIOMARA TORRES MD [Primary Care Provider] -
[2017-11-18 11:10] VITALS: BP 156/100
--- NOTE | 2017-12-09 05:15 | DISCHARGE SUMMARY ---
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 The patient has a history of abdominal aortic aneurysm status post stent, hypertension, and hearing loss. The patient presented with a several day history of shortness of breath with activity, minimally productive cough, fever and chills, generalized weakness. When the shortness of breath and cough became severe he presented to the emergency room, and was found to have pneumonia on chest x-ray and blood testing showed positive for influenza A. HOSPITAL COURSE AND DISCHARGE DIAGNOSES 1. Community-acquired pneumonia. The patient was started on Zithromax IV and then transitioned to p.o. Zithromax at the time of discharge. He was given cough medications and respiratory treatments. There was no growth of his culture from his blood. He was unable to produce sputum for a culture. 2. Influenza. He was started on Tamiflu for treatment of influenza and discharged with Tamiflu to complete a course of treatment. He was afebrile at discharge. Because of mild diarrhea, the patient had stool cultures sent for Campylobacter and Clostridium difficile, and these were negative. His diarrhea stopped on its own. 3. Lightheadedness. The patient presented with weakness and lightheadedness , and blood pressure was as low as 96/76. He required IV hydration and his blood pressure medication of losartan was put on hold. At the time of discharge, the losartan dose was restarted but decreased to half of its prior strength. 4. Thrombocytopenia. Review of remote records showed that the patient's platelet count was 122 one year previously and, during this admission, the platelet count began at 100, and was as low as 77 and 79 at the time of discharge. Because of this, his daily Aspirin dose was discontinued and he was advised to have followup of his platelet count and CBC, and management of his aspirin treatment for his atherosclerotic vascular disease after discharge under the direction of his PCP. 5. Hypertension. After several days of antibiotics and fluid rehydration, his blood pressure returned to normal, and he did require a resumption of his losartan, although at half the dose, at the time of discharge. LABS AND IMAGING: Reviewed and summarized above. ALLERGIES: NONE. MEDICATIONS AT THE TIME OF DISCHARGE 1. Azithromycin 250 mg p.o. daily for 4 more days. 2. Losartan 25 mg p.o. daily (decreased from 50 mg daily). 3. Tamiflu 75 mg p.o. b.i.d. for 4 more days. Resuming his other prehospital medications of: 1. Zetia 10 mg p.o. daily. 2. Multivitamin. CONDITION AT DISCHARGE: Stable. PHYSICAL EXAMINATION AT DISCHARGE VITAL SIGNS: Blood pressure 150/100, heart rate 60 in sinus rhythm, afebrile, room air saturation 98%. HEENT: Unremarkable. NECK: Without JVD or carotid bruits. CHEST: Diminished breath sounds, but no rales, rhonchi or wheezes. HEART: Sounds distant. ABDOMEN: Soft with normal bowel sounds. EXTREMITIES: Without edema. NEUROLOGIC: Intact. FOLLOWUP: Follow up with his PCP for followup of his recovery from pneumonia and influenza and for a repeat platelet blood test. CODE STATUS: FULL CODE. Time required to complete this entire discharge was 45 minutes. TD: 12/09/2017 06:13 ANA
== END 2017-11-18 11:40 | disposition home or self-care (01) | DRG 194 ==
LOC: ED 10:49 → MS2 13:19
PROVIDERS: ADMIT Internal Medicine; ATTEND Internal Medicine
DX: J10.00 Influenza due to other identified influenza virus with unspecified type of pneumonia (principal); E87.1 Hypo-osmolality and hyponatremia; J10.2 Influenza due to other identified influenza virus with gastrointestinal manifestations; D69.6 Thrombocytopenia, unspecified; I95.9 Hypotension, unspecified; I10 Essential (primary) hypertension; E78.5 Hyperlipidemia, unspecified; H91.90 Unspecified hearing loss, unspecified ear; I71.4 Abdominal aortic aneurysm, without rupture; Z79.82 Long term (current) use of aspirin; Z95.828 Presence of other vascular implants and grafts; Z87.891 Personal history of nicotine dependence
CPT/HCPCS: 36415; 71010; 80048; 81001; 81003; 83605; 83630; 85025; 85049; 85379; 85384; 87040; 87045; 87046; 87086; 87177; 87209; 87275; 87276; 87493; 96365; 99283; 99284

== ENCOUNTER 2018-10-22 09:40 | Outpatient (CLI) | payer MEDICARE ==
[2018-10-22 17:29] LABS: BILIRUBIN,URINE NEGATIVE (NEGATIVE); GLUCOSE, URINE (UA) NEGATIVE (NEGATIVE); KETONES,URINE (UA) NEGATIVE (NEGATIVE); LEUKOCYTE ESTERASE, URINE NEGATIVE (NEGATIVE); NITRITE,URINE NEGATIVE (NEGATIVE); OCCULT BLOOD,URINE NEGATIVE (NEGATIVE); PROTEIN,URINE NEGATIVE (NEGATIVE); UROBILINOGEN,URINE 0.2 (NORMAL) E.U./dL (NORMAL)
[2018-10-22 17:31] LABS: CLARITY,URINE CLEAR (CLEAR)
[2018-10-22 17:32] LABS: BASOPHILS % (AUTO) 0.5 %; EOSINOPHILS # (AUTO) 0.2 10^3/uL (0.0-0.7); EOSINOPHILS % (AUTO) 4.2 %; HGB - HEMOGLOBIN 13.8 g/dL (14.0-18.0); LYMPHOCYTES # (AUTO) 1.5 10^3/uL (1.5-3.5); LYMPHOCYTES % (AUTO) 28.2 %; MEAN CORPUSCULAR HEMOGLOBIN 34.6 pg (27.0-31.0); MEAN CORPUSCULAR HGB CONC 33.3 g/dL (32.0-36.0); MEAN CORPUSCULAR VOLUME 104.1 fL (80.0-94.0); MEAN PLATELET VOLUME 9.8 fL (7.4-11.4); MONOCYTES # (AUTO) 0.4 10^3/uL (0.0-1.0); MONOCYTES % (AUTO) 6.9 %; NEUTROPHILS # (AUTO) 3.2 10^3/uL (1.5-6.6); NEUTROPHILS % (AUTO) 60.2 %; PLT - PLATELET COUNT 147 10^3/uL (130-450); RED BLOOD COUNT 3.99 10^6/uL (4.70-6.10); RED CELL DISTRIBUTION WIDTH 13.8 % (12.0-15.0); WHITE BLOOD COUNT 5.3 x10^3/uL (4.8-10.8)
[2018-10-22 17:41] LABS: ALBUMIN 3.8 g/dL (3.2-5.5); ALBUMIN/GLOBULIN RATIO 1.1 (1.0-2.2); CALCIUM 9.2 mg/dL (8.5-10.3); CREATININE 1.3 mg/dL (0.6-1.2); TOTAL PROTEIN 7.4 g/dL (6.7-8.2)
[2018-10-22 17:43] LABS: BACTERIA,URINE None Seen /HPF (None Seen); RBC,URINE None Seen /HPF (0-5); SQUAMOUS EPITHELIAL CELL,UR RARE Squamous (<= Few)
== END 2018-10-22 09:41 | disposition home or self-care (01) ==
LOC: LAB.F 09:40
PROVIDERS: ATTEND Internal Medicine
DX: R53.81 Other malaise (principal); R32 Unspecified urinary incontinence
CPT/HCPCS: 36415; 80053; 81001; 85025; 87086

== ENCOUNTER 2018-10-23 10:42 | Outpatient (CLI) | payer MEDICARE ==
[2018-10-23 17:56] LABS: MEAN RETIC VALUE 120.2; RED BLOOD COUNT 3.9 10^6/uL (4.70-6.10)
[2018-10-23 18:23] LABS: FOLATE 20.42 ng/mL (5.90 - >24.8)
== END 2018-10-23 10:43 | disposition home or self-care (01) ==
LOC: LAB.F 10:42
PROVIDERS: ATTEND Internal Medicine
DX: D53.9 Nutritional anemia, unspecified (principal)
CPT/HCPCS: 36415; 82607; 82746; 85044; 85651

== ENCOUNTER 2018-12-08 09:49 | Outpatient (CLI) | payer MEDICARE | END 2018-12-08 09:50 | disposition critical access hospital (66) | LOC: EMS 09:49 | PROVIDERS: ATTEND Surgery | DX: R41.0 Disorientation, unspecified (principal); H53.8 Other visual disturbances | CPT/HCPCS: A0425; A0429 ==

== ENCOUNTER 2018-12-08 10:27 | Emergency (ER) | payer MEDICARE ==
--- NOTE | 2018-12-08 11:07 | ED Physician Documentation ---
PD HPI ALTERED MENTAL STATUS - Stated complaint Stated Complaint: CONFUSION - Chief complaint Chief Complaint: Neuro - History obtained from History obtained from: Patient, Family - History of Present Illness Timing - onset: Today Timing - duration: Minutes Timing - details: Abrupt onset, Now resolved Quality / character: Memory Loss Associated symptoms: No: Fever, Headache, Stiff neck, Dyspnea, Cough, NVD, Urinary sx, General weakness, Focal weakness, Seizure activity, Syncope Contributing factors: New medication. No: Anticoagulated Basline status: Alert and oriented X 3, Ambulatory, Independent Similar symptoms before: No diagnosis Recently seen: Clinic - Additional information Additional information: 88-year-old previously well male with history of hypertension and BPH has recently started tamsulosin. This morning he got up shaved shower and made breakfast and was sitting at the table when he explained to his that he felt he was seeing stars in front of his eyes and he did not remember making breakfast or getting up. He has a memory lapse of about 40 minutes and he appears now to have normal memory and he has no visual issues. 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 This is been existing for more than a year. The patient states that he checks his blood pressure frequently and he usually runs in the 120/70 range treated. He states that he has had occasionally blood pressures as low as 88 and at that point he will have the appearance of floaters in his vision. The notes that he had an episode similar to this about 1 week ago did not make much of it and in the intervening week he went to a memoir class in which she did an excellent job of both short-term and long-term memory. The does not think there is ever been an issue with the patient's memory and she does not confirm any memory lapses over the past several years. Review of Systems Constitutional: denies: Fever, Chills, Myalgias, Fatigue Eyes: reports: Other (visual symptoms today are vague and include the statements there is blood in my eyes and on my brain.). denies: Decreased vision Ears: denies: Ear pain Nose: denies: Rhinorrhea / runny nose, Congestion Throat: denies: Sore throat Cardiac: denies: Chest pain / pressure, Palpitations Respiratory: denies: Dyspnea, Cough GI: denies: Abdominal Pain, Nausea, Vomiting, Constipation, Diarrhea : denies: Dysuria, Frequency Skin: denies: Rash Musculoskeletal: denies: Neck pain, Back pain Neurologic: denies: Generalized weakness, Focal weakness, Numbness PD PAST MEDICAL HISTORY - Past Medical History Cardiovascular: Hypertension Respiratory: None Endocrine/Autoimmune: None GI: None : None HEENT: None Psych: None Musculoskeletal: None Derm: None - Past Surgical History Past Surgical History: Yes Cardiovascular: AAA - Present Medications Home Medications: Ambulatory Orders Medication Instructions Recorded Confirmed Multivitamin [Multiple Vitamins] 1 each PO DAILY 11/15/17 12/08/18 Losartan [Cozaar] 25 mg PO DAILY #30 tablet 11/18/17 12/08/18 Tamsulosin [Flomax] 0.4 mg PO DAILY 12/08/18 12/08/18 - Allergies Allergies/Adverse Reactions: Allergies Allergy/AdvReac Type Severity Reaction Status Date / Time No Known Drug Allergies Allergy Verified 11/15/17 10:56 - Social History Does the pt smoke?: No Smoking Status: Never smoker Does the pt drink ETOH?: Yes Does the pt have substance abuse?: No - Immunizations Immunizations are current?: Yes - POLST Patient has POLST: No POLST Status: Full Code PD ED PE NORMAL - Vitals Vital signs reviewed: Yes (hypertensive ) - General General: Alert and oriented X 3, No acute distress, Well developed/nourished - HEENT HEENT: Atraumatic, PERRL, EOMI, Ears normal, Other (dry mucous membranes) - Neck Neck: Supple, no meningeal sign, No bony TTP - Cardiac Cardiac: RRR, No murmur - Respiratory Respiratory: No respiratory distress, Clear bilaterally - Abdomen Abdomen: Soft, Non tender - Back Back: No CVA TTP, No spinal TTP - Derm Derm: Normal color, Warm and dry, No rash - Extremities Extremities: No deformity, No edema - Neuro Neuro: Alert and oriented X 3, 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, No motor deficit, No sensory deficit, Normal speech Eye Opening: Spontaneous Motor: Obeys Commands Verbal: Oriented GCS Score: 15 - Psych Psych: Normal mood, Normal affect Results - Vitals Vitals: Vital Signs - 24 hr 12/08/18 12/08/18 12/08/18 10:29 10:49 11:00 Temperature 36 C L Heart Rate 71 65 63 Respiratory 21 14 16 Rate Blood Pressure 193/103 H 152/93 H O2 Saturation 98 97 100 12/08/18 12/08/18 12/08/18 11:37 12:00 12:30 Temperature Heart Rate 65 56 L 62 Respiratory 18 14 13 Rate Blood Pressure 156/91 H 157/87 H 154/79 H O2 Saturation 95 99 97 Oxygen O2 Source Room air - EKG (time done) 1031 Rate: Rate (enter#) (65) Rhythm: NSR QRS: Low voltage Compare to prior EKG: Old EKG unavailable Computer interpretation: Disagree with computer (I do not see supraventricular bigeminy) - Labs Labs: Laboratory Tests 12/08/18 12/08/18 12/08/18 10:35 10:35 10:35 WBC 4.2 L RBC 4.06 L Hgb 14.1 Hct 40.8 L MCV 100.4 H MCH 34.7 H MCHC 34.6 RDW 14.0 Plt Count 105 L MPV 9.4 Neut # (Auto) 2.5 Lymph # (Auto) 1.3 L [place] # (Auto) 0.3 Eos # (Auto) 0.1 Baso # (Auto) 0.0 Absolute Nucleated RBC 0.00 Nucleated RBC % 0.0 Sodium 136 Potassium 4.2 Chloride 103 Carbon Dioxide 25 Anion Gap 8.0 BUN 17 Creatinine 1.1 Estimated GFR (MDRD) 63 L Glucose 106 H Calcium 9.3 Total Bilirubin 1.2 H AST 25 ALT 14 Alkaline Phosphatase 49 Troponin I < 0.04 Total Protein 7.4 Albumin 3.8 Globulin 3.6 Albumin/Globulin Ratio 1.1 Lipase 31 Urine Color Urine Clarity Urine pH Ur Specific [place] Urine Protein Urine Glucose (UA) Urine Ketones Urine Occult Blood Urine Nitrite Urine Bilirubin Urine Urobilinogen Ur Leukocyte Esterase Ur Microscopic Review Urine Culture Comments 12/08/18 11:28 WBC RBC Hgb Hct MCV MCH MCHC RDW Plt Count MPV Neut # (Auto) Lymph # (Auto) [place] # (Auto) Eos # (Auto) Baso # (Auto) Absolute Nucleated RBC Nucleated RBC % Sodium Potassium Chloride Carbon Dioxide Anion Gap BUN Creatinine Estimated GFR (MDRD) Glucose Calcium Total Bilirubin AST ALT Alkaline Phosphatase Troponin I Total Protein Albumin Globulin Albumin/Globulin Ratio Lipase Urine Color YELLOW Urine Clarity CLEAR Urine pH 6.0 Ur Specific [place] 1.020 Urine Protein NEGATIVE Urine Glucose (UA) NEGATIVE Urine Ketones NEGATIVE Urine Occult Blood TRACE-LYSE Urine Nitrite NEGATIVE Urine Bilirubin NEGATIVE Urine Urobilinogen 0.2 (NORMAL) Ur Leukocyte Esterase NEGATIVE Ur Microscopic Review NOT INDICATED Urine Culture Comments NOT INDICATED - Rads (name of study) CT head without Radiology: Prelim report reviewed (Impression: Generalized age-related cortical atrophic changes without evidence of acute intracranial abnormality. Prominent CSF along the left temporal tip may represent arachnoid cyst versus encephalomalacia.), EMP read indepedently, See rad report Procedures - IVC sono (time) 1045 Bedside IVC sono: IVC measures (cm) (1.57), IVC collapsed c insp (cm) (0.37), Euvolemia PD MEDICAL DECISION MAKING - ED course Complexity details: reviewed old records, reviewed results, re-evaluated patient, considered differential, d/w patient, d/w family ED course: .88-year-old male with a episode of amaurosis fugax has resolved his Fuge and I suspect the underlying issue in this past 2 weeks is transient hypo-tension related to orthostasis and the tamsulosin. He will check his blood pressures frequently this week and adjust the time that he takes his [place]artin. I have asked him to report his pressure findings to Dr. Castaneda and make any medication adjustments necessary. Departure - Departure Disposition: 01 Home, Self Care Clinical Impression: Amaurosis fugax Condition: Stable Instructions: ED Hypotension Orthostatic Follow-Up: Tristen Castaneda MD [Primary Care Provider] -
[2018-12-08 11:17] LABS: BASOPHILS % (AUTO) 0.3 %; EOSINOPHILS # (AUTO) 0.1 10^3/uL (0.0-0.7); EOSINOPHILS % (AUTO) 3.2 %; HGB - HEMOGLOBIN 14.1 g/dL (14.0-18.0); LYMPHOCYTES # (AUTO) 1.3 10^3/uL (1.5-3.5); LYMPHOCYTES % (AUTO) 30.7 %; MEAN CORPUSCULAR HEMOGLOBIN 34.7 pg (27.0-31.0); MEAN CORPUSCULAR HGB CONC 34.6 g/dL (32.0-36.0); MEAN CORPUSCULAR VOLUME 100.4 fL (80.0-94.0); MEAN PLATELET VOLUME 9.4 fL (7.4-11.4); MONOCYTES # (AUTO) 0.3 10^3/uL (0.0-1.0); MONOCYTES % (AUTO) 6.3 %; NEUTROPHILS # (AUTO) 2.5 10^3/uL (1.5-6.6); NEUTROPHILS % (AUTO) 59.5 %; PLT - PLATELET COUNT 105 10^3/uL (130-450); RED BLOOD COUNT 4.06 10^6/uL (4.70-6.10); WHITE BLOOD COUNT 4.2 x10^3/uL (4.8-10.8)
[2018-12-08 11:36] LABS: ALBUMIN 3.8 g/dL (3.2-5.5); ALBUMIN/GLOBULIN RATIO 1.1 (1.0-2.2); BILIRUBIN,TOTAL 1.2 mg/dL (0.2-1.0); CALCIUM 9.3 mg/dL (8.5-10.3); CREATININE 1.1 mg/dL (0.6-1.2); TOTAL PROTEIN 7.4 g/dL (6.7-8.2)
[2018-12-08 11:37] LABS: BILIRUBIN,URINE NEGATIVE (NEGATIVE); GLUCOSE, URINE (UA) NEGATIVE (NEGATIVE); KETONES,URINE (UA) NEGATIVE (NEGATIVE); LEUKOCYTE ESTERASE, URINE NEGATIVE (NEGATIVE); NITRITE,URINE NEGATIVE (NEGATIVE); OCCULT BLOOD,URINE TRACE-LYSE (NEGATIVE); PROTEIN,URINE NEGATIVE (NEGATIVE); UROBILINOGEN,URINE 0.2 (NORMAL) E.U./dL (NORMAL)
[2018-12-08 11:40] LABS: CLARITY,URINE CLEAR (CLEAR)
--- NOTE | 2018-12-08 12:08 | CT Report ---
Reason: acute confusion Procedure Date: 12/08/2018 Accession Number: [id number] / [id number] Procedure: CT - Head W/O CPT Code: FULL RESULT: EXAM: CT HEAD EXAM DATE: 12/08/2018 11:38 AM. CLINICAL HISTORY: Acute confusion. COMPARISON: None. TECHNIQUE: Multiaxial CT images were obtained from the foramen magnum to the vertex. Reformats: Sagittal and coronal. IV contrast: None. In accordance with CT protocol optimization, one or more of the following dose reduction techniques were utilized for this exam: automated exposure control, adjustment of mA and/or KV based on patient size, or use of iterative reconstructive technique. FINDINGS: Parenchyma: No intraparenchymal hemorrhage. No evidence of mass, midline shift, or CT findings of acute infarction. Horton-white differentiation is distinct. Diffuse chronic microangiopathic white matter changes are evident. Extraaxial Spaces: Prominent CSF along the left temporal tip may represent arachnoid cyst versus encephalomalacia. No subdural or epidural hemorrhage identified. Ventricles: The ventricles and cortical sulci are enlarged, consistent with age-related tissue loss. Sinuses and orbits: Imaged paranasal sinuses, orbits, and mastoids show no significant abnormality. Bones: No evidence of fracture or calvarial defect. Other: None. IMPRESSION: Generalized age-related cortical atrophic changes without evidence of acute intracranial abnormality. Prominent CSF along the left temporal tip may represent arachnoid cyst versus encephalomalacia [facility]
[2018-12-08 13:23] VITALS: BP 166/91
== END 2018-12-08 13:33 | disposition home or self-care (01) ==
LOC: EDUNIT# → ED 10:27
DX: G45.3 Amaurosis fugax (principal); I10 Essential (primary) hypertension; N40.0 Benign prostatic hyperplasia without lower urinary tract symptoms
CPT/HCPCS: 36415; 70450; 80053; 81001; 81003; 83690; 84484; 85025; 87086; 93005; 99283; 99284

== ENCOUNTER 2018-12-15 08:21 | Outpatient (CLI) | payer MEDICARE | END 2018-12-15 08:22 | disposition home or self-care (01) | LOC: LAB.F 08:21 | PROVIDERS: ATTEND Specialist | DX: N40.1 Benign prostatic hyperplasia with lower urinary tract symptoms (principal) | CPT/HCPCS: 36415; 84153 ==

== ENCOUNTER 2019-01-20 09:09 | Outpatient (CLI) | payer MEDICARE ==
[2019-01-20 18:12] LABS: ALBUMIN 3.6 g/dL (3.2-5.5); ALBUMIN/GLOBULIN RATIO 1.2 (1.0-2.2); ALKALINE PHOSPHATASE 45 IU/L (42-121); ALT ALANINE AMINOTRANSFERASE 16 IU/L (10-60); AST ASPARTATE AMINOTRANSFERASE 21 IU/L (10-42); BILIRUBIN,TOTAL 1.2 mg/dL (0.2-1.0); BUN - BLOOD UREA NITROGEN 21 mg/dL (6-20); CALCIUM 8.9 mg/dL (8.5-10.3); CARBON DIOXIDE - CO2 28 mmol/L (21-32); CHLORIDE 103 mmol/L (101-111); CHOL/HDL RATIO 3.1 (<5.0); CHOLESTEROL 236 mg/dL; CREATININE 1.2 mg/dL (0.6-1.2); GFR - MDRD 57 (>89); GLUCOSE 90 mg/dL (70-100); HDL CHOLESTEROL 75 mg/dL; LDL CHOLESTEROL,CALCULATED 147 mg/dL; SODIUM 137 mmol/L (135-145); TOTAL PROTEIN 6.7 g/dL (6.7-8.2); VLDL CHOLESTEROL 14 mg/dL
== END 2019-01-20 09:10 | disposition home or self-care (01) ==
LOC: LAB.F 09:09
PROVIDERS: ATTEND Internal Medicine
DX: E78.5 Hyperlipidemia, unspecified (principal); N40.1 Benign prostatic hyperplasia with lower urinary tract symptoms; I10 Essential (primary) hypertension; N13.8 Other obstructive and reflux uropathy; R19.7 Diarrhea, unspecified
CPT/HCPCS: 36415; 80053; 80061; 83721

== ENCOUNTER 2019-12-29 08:38 | Outpatient (CLI) | payer MEDICARE ==
[2019-12-29 10:07] LABS: HGB - HEMOGLOBIN 13.3 g/dL (14.0-18.0); MEAN CORPUSCULAR HEMOGLOBIN 35.4 pg (27.0-31.0); MEAN CORPUSCULAR HGB CONC 34.1 g/dL (32.0-36.0); MEAN CORPUSCULAR VOLUME 103.7 fL (80.0-94.0); MEAN PLATELET VOLUME 11.5 fL (7.4-11.4); RED BLOOD COUNT 3.76 10^6/uL (4.70-6.10); RED CELL DISTRIBUTION WIDTH 13.5 % (12.0-15.0); WHITE BLOOD COUNT 4.7 x10^3/uL (4.8-10.8)
[2019-12-29 12:19] LABS: ALBUMIN 3.8 g/dL (3.2-5.5); ALBUMIN/GLOBULIN RATIO 1.2 (1.0-2.2); ALKALINE PHOSPHATASE 46 IU/L (42-121); ALT ALANINE AMINOTRANSFERASE 14 IU/L (10-60); AST ASPARTATE AMINOTRANSFERASE 20 IU/L (10-42); BILIRUBIN,TOTAL 1.1 mg/dL (0.2-1.0); BUN - BLOOD UREA NITROGEN 21 mg/dL (6-20); CALCIUM 8.9 mg/dL (8.5-10.3); CARBON DIOXIDE - CO2 28 mmol/L (21-32); CHLORIDE 106 mmol/L (101-111); CHOL/HDL RATIO 3.7 (<5.0); CHOLESTEROL 253 mg/dL; CREATININE 1.2 mg/dL (0.6-1.2); GFR - MDRD 57 (>89); GLUCOSE 94 mg/dL (70-100); HDL CHOLESTEROL 68 mg/dL; LDL CHOLESTEROL,CALCULATED 171 mg/dL; LDL/HDL RATIO 2.5 (<3.6); SODIUM 141 mmol/L (135-145); VLDL CHOLESTEROL 14 mg/dL
== END 2019-12-29 08:39 | disposition home or self-care (01) ==
LOC: LAB.S 08:38
PROVIDERS: ATTEND Internal Medicine
DX: E78.5 Hyperlipidemia, unspecified (principal); D53.9 Nutritional anemia, unspecified
CPT/HCPCS: 36415; 80053; 80061; 83721; 85027

== ENCOUNTER 2020-06-02 11:23 | Outpatient (CLI) | payer MEDICARE ==
[2020-06-02] MEDS ORDERED: IOVERSOL 320 50 ML VIAL ONE (11:32)
[2020-06-02] MEDS ORDERED: IOVERSOL 320 100 ML VIAL IVP ONE ×2 (11:32→13:10)
[2020-06-02 11:52] LABS: CREATININE 1.1 mg/dL (0.6-1.2)
[2020-06-02] MEDS ORDERED: IOVERSOL 320 50 ML VIAL PO ONE (13:10)
--- NOTE | 2020-06-02 13:36 | CT Report ---
PROCEDURE: Abdomen/Pelvis W INDICATIONS: ABD PAIN,RLQ CONTRAST: IV CONTRAST: Optiray 320 ml: 100 PO CONTRAST: Optiray 320 ml50 TECHNIQUE: After the administration of oral and intravenous contrast, 5 mm thick sections acquired from the diap hragms to the symphysis. 5 mm thick coronal and sagittal reformats were acquired. For radiation dos e reduction, the following was used: automated exposure control, adjustment of mA and/or kV accordin g to patient size. COMPARISON: CT abdomen pelvis 04/03/2016. FINDINGS: Image quality: Excellent. ABDOMEN: Lung bases: Lung bases are clear. Heart size is normal. Solid organs: Liver and spleen are normal in size and enhancement. Hepatic steatosis is present. Ga llbladder demonstrates significant gallstones without wall thickening. Biliary system is non dilated . Pancreas enhances normally. No adrenal nodules. Kidneys are atrophic bilaterally.. Peritoneum and bowel: Bowel loops demonstrate normal wall thickness and caliber. No free fluid or a ir. Nodes and vessels: No retroperitoneal or mesenteric adenopathy by size criteria. Aorta demonstrates an endograft from the suprarenal portion extending into the proximal iliac arteries. Within the dist al portion, there has been enlargement of the aneurysmal sac currently measuring 7.3 cm x 6.6 cm comp ared to 5.7 cm AP x 4.6 cm transverse. There are areas of hyperdensity appearing to extend from the p osterior aspect of the iliac stents at the distal aorta with hyperdensity extending into the aneurysm sac. Miscellaneous: No ventral hernias. Mild hiatal hernia. PELVIS: Genitourinary: Bladder wall thickness is normal. Miscellaneous: No inguinal hernias or adenopathy. Bones: No suspicious bony lesions. No vertebral body compression fractures. Multilevel degenerativ e changes are present within the visualized thoracolumbar spine IMPRESSION: 1. Aortoiliac endograft with enlarging aneurysmal sac with areas of hyperdensity extending between th e endograft and aneurysmal sac. 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 Chronicity o f leak is indeterminate given most recent prior exam is dated 2015. 2. Cholelithiasis. 3. Hepatic steatosis. The above findings were discussed with Mireya Bower on 06/02/2020 at 1:15 PM. Reviewed by: Bere Jaime MD on 06/02/2020 1:34 PM PDT Approved by: Bere Jaime MD on 06/02/2020 1:34 PM PDT Station ID: [id number]
== END 2020-06-02 11:24 | disposition home or self-care (01) ==
LOC: DI 11:23
PROVIDERS: ATTEND Physician Assistant Medical
DX: R10.31 Right lower quadrant pain (principal); I71.4 Abdominal aortic aneurysm, without rupture; K80.20 Calculus of gallbladder without cholecystitis without obstruction; K76.0 Fatty (change of) liver, not elsewhere classified; Z01.812 Encounter for preprocedural laboratory examination
CPT/HCPCS: 36415; 74177; 82565; Q9967

== ENCOUNTER 2020-06-02 15:39 | Outpatient (CLI) | payer MEDICARE | END 2020-06-02 15:40 | disposition short-term general hospital (02) | LOC: EMS 15:39 | PROVIDERS: ATTEND Surgery | DX: R93.5 Abnormal findings on diagnostic imaging of other abdominal regions, including retroperitoneum (principal); Z95.828 Presence of other vascular implants and grafts; R10.9 Unspecified abdominal pain | CPT/HCPCS: A0425; A0429 ==